=== PATIENT | male | born 1940 | race Caucasian/White ===

== ENCOUNTER → 2020-02-16 11:03 | Outpatient (CLI) | payer MEDICARE, SELFPAY ==
--- NOTE | 2020-02-16 | DI.MRI.S_ITS ---
PROCEDURE: MR LOWER LEG RT WO/W CON INDICATIONS: Localized swelling, mass and lump, right lower leg. The patient reports tenderness from just [id number] inferiorly to the lower calf. He cannot identify a specific site of mass or focal tenderness. TECHNIQUE: Noncontrast coronal T1 spin echo and STIR, sagittal T1 spin echo with fat saturation and STIR, axial T1 spin echo and T2 fast spin echo with fat saturation. After the administration of contrast, axial/sagittal/coronal T1 spin echo with fat saturation through the right lower extremity from above the knee into the distal third of the calf. Coronal imaging was performed bilaterally to provide normal comparison. COMPARISON: None. FINDINGS: Image quality: Excellent. Bones: The visualized bone marrow demonstrates normal signal on all sequences. The overlying cortex appears intact. No abnormal intraosseous enhancement. Soft tissues: No soft tissue masses are visualized. The scanned muscles demonstrate normal overall bulk and internal signal. Subcutaneous tissues appear normal as well. No abnormal soft tissue enhancement. IMPRESSION: The vascular structures appear normal, without evidence of aneurysm or venous thrombosis. No arterial stenosis is identified. Through the adipose and muscular soft tissues over the right lower extremity from above the knee into the distal third of the calf region no area of inflammation or abnormal fluid collection is seen. The joint morphology is normal with expected degree of mild degenerative osteoarthritic change. No trauma found. A source of persistent lower extremity pain on the right is not seen. Dictated by: Christiano Mckinney M.D. on 02/16/2020 at 13:29 Approved by: Christiano Mckinney M.D. on 02/16/2020 at 13:34
== END ==
PROVIDERS: PCP Family Medicine; Referring Provider Family Medicine Geriatric Medicine; Visit Provider Family Medicine Geriatric Medicine
DX: R22.41 Localized swelling, mass and lump, right lower limb (principal); M79.604 Pain in right leg
CPT/HCPCS: 73720

== ENCOUNTER → 2020-11-29 09:53 | Outpatient (CLI) | payer MEDICARE, SELFPAY ==
--- NOTE | 2020-11-29 | DI.RAD.S_ITS ---
PROCEDURE: FL GUIDED PICC PLACEMENT INDICATIONS: Diffuse large B-cell lymphoma, lymph nodes of head COMPARISON: None. FINDINGS: PICC was placed by the intravenous therapy team from the right side. Fluoroscopic spot film demonstrates the tip of PICC projecting to the area of middle 3rd of the superior vena cava.. IMPRESSION: Tip of PICC projects to the area of superior vena cava region, approximately the middle 3rd. Dictated by: Christiano Mckinney M.D. on 11/29/2020 at 14:17 Approved by: Christiano Mckinney M.D. on 11/29/2020 at 14:33
== END ==
PROVIDERS: PCP Family Medicine; Referring Provider Family Medicine; Visit Provider Internal Medicine Hematology & Oncology
DX: Z45.2 Encounter for adjustment and management of vascular access device (principal); C83.31 Diffuse large B-cell lymphoma, lymph nodes of head, face, and neck
CPT/HCPCS: 36573

== ENCOUNTER 2024-04-08 12:30 | Outpatient (RCR) | payer MEDICARE, SELFPAY | END 2024-04-08 14:30 | LOC: CAR 12:30 | PROVIDERS: PCP Family Medicine; Referring Provider Internal Medicine Cardiovascular Disease; Visit Provider Internal Medicine Cardiovascular Disease | DX: Z95.1 Presence of aortocoronary bypass graft (principal) | CPT/HCPCS: 93798 ==